=== PATIENT | female | born 1985 | race Caucasian/White ===

== ENCOUNTER → 2018-03-04 | Outpatient (CLI) | payer OTHER | LOC: FIMAGING 11:30 | PROVIDERS: ATTEND Obstetrics & Gynecology | DX: O36.62X0 Maternal care for excessive fetal growth, second trimester, not applicable or unspecified (principal); O99.212 Obesity complicating pregnancy, second trimester; O24.111 Pre-existing type 2 diabetes mellitus, in pregnancy, first trimester; O26.891 Other specified pregnancy related conditions, first trimester; E11.9 Type 2 diabetes mellitus without complications; M06.9 Rheumatoid arthritis, unspecified; Z3A.26 26 weeks gestation of pregnancy ==